=== PATIENT | female | born 1945 | race Caucasian/White ===

== ENCOUNTER 2017-01-31 15:09 | Inpatient (IN) | payer MEDICARE, OTHER ==
[~2017-01-31] VITALS: Ht 149.9 cm; Wt 99.8 kg
[~2017-01-31 15:09] MED LIST: ACETAMINOPHEN-1 EAC1 PO; ASPIR-LOW81 MG PO; CITALOPRAM HBR20 MG PO; CLARITIN10 MG PO; DILAUDID4 MG PO; HYDROCODON-ACE1 EA10 PO; KEFLEX250 MG PO; LIPITOR10 MG PO; LISINOPRIL10 MG PO; LORATADINE-D 21 EACH PO; MELOXICAM15 MG PO; METOPROLOL SUCC25 MG PO; OXYCODONE HCL10 MG PO; POTASSIUM GLUCO99 MG PO; ROPINIROLE HC0.25 MG PO; VESICARE10 MG PO; XARELTO10 MG PO
[2017-02-04] MEDS ORDERED: NORCO 7.5-3251 EACH PO (12:38)
--- NOTE | 2017-02-05 12:41 | NUR ---
[facility] PT CARE NOTE THIS IS A 71 YEAR OLD FEMALE THAT IS SCHEDULED FOR A RIGHT TOTAL KNEE REPLACEMENT BY DR DANN ROSE ON 02/17/17. PT STATES SHE LIVES WITH HER IN 1 STORY HOUSE WITH A HANDICAP RAMP. STATES THEY HAVE A TUB/SHOWER COMBINATION AND THEY HAVE A SHOWR SEAT. PT STATES SHE HAD HER LEFT ONE DONE 01/2016 AND HAS A FWW ALREADY. ALSO STATES SHE HAS BEEN TO [facility] OP PT AND IS PLANNING ON DOING OP PT AFTER SURGERY. PT DENIES ANY FURTHER QUESTIONS AT THIS TIME. WILL FOLLOW HER DURING HER STAY IN THE HOSPITAL. [employer] EXAMINERTRANSPORTATION PROJECT MANAGER CASE MANAGEMENT
--- NOTE | 2017-02-17 08:53 | NUR ---
02/17/17 0853 Liz Lance 0844: NASAL AIRWAY REMOVED BY STEREO COMPILER. O2 SAT 99% PT AWAKE, REACTIVE AND MAINTAINING OWN AIRWAY. 0837: PT ARRIVED TO PACU WITH NASAL AIRWAY AND ON 4L NC. REACTIVE TO STIMULI. 0852: KRIO CUFF PLACED ON RIGHT KNEE OVER URIEL WRAP PER ORDER.
--- NOTE | 2017-02-17 09:45 | NUR ---
PT ARRIVED FROM PACU VIA HOSPITAL BED. PT DROWSY BUT ORIENTED. DENIES PAIN, NAUSEA, OR OTHER CONCERNS. RIGHT KNEE DRESSING CDI. TEDS, SCD'S, AND CRYO CUFF IN PLACE. PT SATTING 93% ON 2L NC, PULSE OX ON. IV INFUSING INTO LEFT HAND WNL. EDUCATED PT ON USING BED AND CALL LIGHT, CALLING FOR ASSISTANCE NEEDED. CALL LIGHT WITHIN REACH.
--- NOTE | 2017-02-17 10:50 | NUR ---
PT SITTING UP IN BED DRINKING CLEAR LIQUIDS FROM CLEAR LIQUID TRAY, LAVELLE WELL SO FAR. PT DENIES PAIN OR NAUSEA. RIGHT KNEE DRESSING REMAINS CDI. PT REPORTS INCREASED SENSATION OF LOWER EXTREMITIES ALL THE WAY DOWN TO FEET, MOVEMENT OF KNEES AND TOES NOTED.
--- NOTE | 2017-02-17 11:50 | NUR ---
PT LAVELLE CLEARS WELL AND REQUESTED MORE TO EAT. ORDERED GRILLED CHEESE SANDWICH, LAVELLE WELL. DENIES PAIN OR NAUSEA. TEDS, SCD'S, AND CRYOCUFF IN PLACE, RIGHT KNEE DRESSING REMAINS CDI. IV INFUSING WNL.
--- NOTE | 2017-02-17 12:21 | NUR ---
PT IN MED/SURG RM FROM PACU FOLLOWING SURGERY. PT WAS MOSTLY AWAKE, KNEW I WAS PRESENT, BUT STILL NOT COMPLETELY AWARE. I TOLD HER I WAS CHECKING ON HER, SHE THANKED ME. I MENTIONED I WOULD RETURN TO VISIT HER LATER. PT THANKED ME, GAVE HER A BLESSING. WILL FOLLOW NEEDED
--- NOTE | 2017-02-17 13:08 | NUR ---
ATTEMPTED TO WEAN TO RA, PT SATTING 88% ON RA. PLACED BACK ON 2L NC SATTING 95%. PT USING I.S. INDEPENDENTLY AND APPROPTIATELY. CALL LIGHT WITHIN REACH. AT BEDSIDE.
--- NOTE | 2017-02-17 14:30 | NUR ---
PT WORKED WITH P.T., AMB TO RESTROOM WITH 1 PA AND FWW. PT WAS ABLE TO VOID WITHOUT DIFFICULTY. DEPENDS ON PER PT REQUEST SHE HAS SOME OCC INCONTINENCE. PT AMB BACK TO BED WITHOUT DIFFICULTY. CALL LIGHT WITHIN REACH.
--- NOTE | 2017-02-17 16:10 | NUR ---
PT DROSWY IN BED, WATCHING TV OCC. DENIES NEEDS OR CONCERNS AT THIS TIME. CALL LIGHT WITHIN REACH.
--- NOTE | 2017-02-17 17:30 | NUR ---
PT ATE ALL OF DINNER, LAVELLE WELL. DENIES PAIN OR NAUSEA AT THIS TIME. DRESSING CDI. SCD'D, TEDS, CRYO CUFF IN PLACE. CRYOCUFF REFILLED WITH ICE. IV WNL. PT REMAINS ON 2L NC SATTING 96%. CALL LIGHT WITHIN REACH. AT BEDSIDE.
--- NOTE | 2017-02-17 20:04 | NUR ---
PT ASSESSMENT COMPLETE. AT BEDSIDE. PT ALERT AND ORIENTED. PT ON 2 LPM, SATS 98% PER CONTINUOUS PULSE OXIMETER. PT DENIES ANY SOB, N/V. PT RATES PAIN 2/10, SCHEDULED TORADOL AND OXYCODONE GIVEN. IV FLUIDS INFUSING WITHOUT DIFFICULTY. DRESSING TO RIGHT KNEE HAS NOTED FIFTY CENT PIECE SHADOWING TO UPPER PORTION OF MEPILEX DRESSING, NOT SATURATED THROUGH ABD PAD OR URIEL WRAP, OTHERWISE DRESSING C/D/I. PT DENIES ANY NUMBNESS/TINGLING TO LOWER EXTREMITIES. GOOD CMS. CRYO CUFF/TEDS/SCD IN PLACE. PT ASSISTED UP TO BATHROOM WITH x1 ASSIST USING FWW, SLOW TO MOVE, TOLERATED AMBULATION FAIRLY WELL. PT VOIDING WITHOUT DIFFICULTY. ASSISTED BACK TO BED. CALL LIGHT WITHIN REACH. PT DENIES ANY FURTHER NEEDS AT THIS TIME.
--- NOTE | 2017-02-17 20:12 | NUR ---
RT IN WITH PT DOING NIGHT ASSESSMENT. CALL LIGHT WITHIN REACH.
--- NOTE | 2017-02-17 23:04 | NUR ---
PT RESTING QUIETLY WITH EYES CLOSED. SATS 97% ON 2 LPM O2 VIA NASAL CANNULA. IV FLUIDS INFUSING WITHOUT DIFFICULTY. PT APPEARS COMFORTABLE AT THIS TIME. CRYO CUFF/TEDS/SCD IN PLACE. CALL LIGHT WITHIN REACH.
--- NOTE | 2017-02-18 02:05 | NUR ---
PT WAKES EASILY WHEN STAFF WALK IN ROOM. PT DENIES ANY PAIN AT REST, SCHEDULED TORADOL AND OXYCODONE GIVEN. PT SATS 97% ON 2 LPM O2 VIA NASAL CANNULA. IV FLUIDS INFUSING WITHOUT DIFFICULTY. DRESSING TO RIGHT KNEE IS UNCHANGED FROM PREVIOUS ASSESSMENT, SMALL AMOUNT OF SHADOWING NOTED TO MEPILEX OTHERWISE C/D/I. PT ASSISTED UP TO BATHROOM WITH x1 ASSIST USING FWW. PT VOIDING WELL. PT AMBULATES SLOWLY, TOLERATES AMBULATION FAIRLY WELL. PT BACK IN BED. CRYO CUFF REFILLED AND IN PLACE. TEDS/SCD IN PLACE. CONTINUOUS PULSE OXIMETER IN PLACE. CALL LIGHT WITHIN REACH. PT DENIES ANY FURTHER NEEDS AT THIS TIME.
--- NOTE | 2017-02-18 04:14 | NUR ---
PT SLEEPING, RR EVEN AND UNLABORED. PT APPEARS COMFORTABLE AT THIS TIME. PT SATS 98% ON 2 LPM O2 VIA NASAL CANNULA. CALL LIGHT WITHIN REACH.
--- NOTE | 2017-02-18 06:37 | NUR ---
PT HAD AN UNEVENTFUL NIGHT. PT ON 2 LPM O2 VIA NASAL CANNULA, CONTINUOUS PULSE OXIMETER IN PLACE. SCHEDULED TORADOL/OXYCODONE GIVEN, NO PRN PAIN MEDICATION NEEDED THIS SHIFT. PT DENIES ANY N/V, SOB. DRESSING HAS SMALL SHADOWING NOTED TO DANIELX, OTHERWISE DRESSING C/D/I. CRYO CUFF/TEDS/SCD IN PLACE. PT VOIDING WELL. IV NOW SALINE LOCKED. PT AMBULATES WITH x1 ASSIST USING FWW, SLOW TO MOVE, TOLERATES AMBULATION FAIRLY WELL.
--- NOTE | 2017-02-18 07:47 | NUR ---
MORNING ASSESSMENT DONE. PATIENT SITTING UP IN BED FOR BREAKFAST. BLOOD GLUCOSE IS 126 WITH NO COVERAGE NEEDED. O2 AT 2L AND 99% AT REST. RIGHT KNEE DRESSING HAS OLD DRAINAGE ON MEPILEX, BUT IS OTHERWISE INTACT. PATIENT RATES RIGHT KNEE PAIN 5/10 AND WILL TAKE SCHEDULED PAIN MEDICATIONS AFTER BREAKFAST.
--- NOTE | 2017-02-18 08:35 | NUR ---
DR. ROSE IN TO SEE PATIENT. PATIENT LIKELY TO GO HOME TOMORROW. PATIENT TO HAVE OUT PATIENT PHYSICAL THERAPY UPON DISCHARGE.
--- NOTE | 2017-02-18 09:21 | NUR ---
PATIENT UP TO CHAIR WITH 2 PERSON ASSIST AND WALKER. PATIENT ON ROOM AIR AND 95%, RT NOTIFIED. PATIENT WITH KRYO CUFF ON. PATIENT INCOURAGED TO USE INCENTIVE SPIROMETER. LINENS ARE CHANGED.
--- NOTE | 2017-02-18 09:33 | NUR ---
PATIENT GIVEN ONE NORCO FOR 4/10 RIGHT KNEE PAIN, AND IN ANTICIPATION OF PHYSICAL THERAPY THIS MORNING.
--- NOTE | 2017-02-18 10:23 | NUR ---
PATIENT UP TO AMBULATE WITH PHYSICAL THERAPY, DID STAIRS.
--- NOTE | 2017-02-18 12:12 | NUR ---
PT SITTING IN CHAIR-MUCH MORE ALERT AND ORIENTED THAN YESTERDAY. HER BY HER SIDE. P.T. HAS BEEN IN ONCE, AND SHE KNOWS THAT ANOTHER SESSION WILL BE THIS AFTERNOON. HER RIGHT HAND IS ALSO HEALING FROM A SMALL PROCEDURE DONE LAST WEEK, JUST THEY BEGAN TO MOVE FROM [place] TO [place]. EXPRESSED GREAT SATIFACTION WITH DR ROSE. REQUESTED PRAYER, WILL FOLLOW NEEDED
--- NOTE | 2017-02-18 12:21 | NUR ---
PATIENT UP TO CHAIR FOR LUNCH. APPETITE IS GOOD. PATIENT GIVEN ONE NORCO FOR 3/10 RIGHT KNEE PAIN.
--- NOTE | 2017-02-18 13:46 | NUR ---
ADMINISTERED PRN PAIN MEDS PER PT REQUEST, RATES PAIN 6\10. DENIES FURTHER CONCERNS.
--- NOTE | 2017-02-18 13:59 | NUR ---
FILLED PTS KRYO CUFF WITH ICE
--- NOTE | 2017-02-18 15:29 | NUR ---
PT OUT OF ROOM WORKING WITH PHYS. THER.
--- NOTE | 2017-02-18 18:59 | NUR ---
REFILLED CRYO 1843 AND FRESH WATER.
--- NOTE | 2017-02-18 20:10 | NUR ---
PT ASSESSMENT COMPLETE. PT RATES PAIN 5-6/10, SCHEDULED TORADOL AND OXYCODONE GIVEN. PT DENIES ANY SOB, N/V. SATS 94% ON ROOM AIR PER CONTINUOUS PULSE OXIMETER. DRESSING TO KNEE IS C/D/I, SMALL AMOUNT OF SHADOWING NOTED TO MEPILEX WHICH IS UNCHANGED FROM MY PREVIOUS ASSESSMENTS. IV SALINE LOCKED, PATENT AND INTACT, FLUSHES WELL. GOOD CMS. CRYO CUFF/TEDS/SCD IN PLACE. PT ASSISTED UP TO BATHROOM WITH x1 ASSIST USING FWW, SLOW TO MOVE, TOLERATES AMBULATION FAIRLY WELL. PT VOIDING WELL. PT BACK IN BED. CALL LIGHT WITHIN REACH. PT DENIES ANY FURTHER NEEDS AT THIS TIME.
--- NOTE | 2017-02-18 21:15 | NUR ---
PT RESTING IN BED DOING WORD PUZZLES. PT STATES HER PAIN IS GETTING BETTER, NOW RATES PAIN 4-5/10. CRYO CUFF/TEDS/SCD IN PLACE. PT DENIES ANY FURTHER NEEDS AT THIS TIME. CALL LIGHT WITHIN REACH.
--- NOTE | 2017-02-18 23:19 | NUR ---
PT C/O PAIN 08/09, NORCO GIVEN PER PT REQUEST. WARM BLANKETS GIVEN. PT READY FOR BED. LIGHTS AND TV OFF. CALL LIGHT WITHIN REACH. PT DENIES ANY FURTHER NEEDS AT THIS TIME.
--- NOTE | 2017-02-19 00:48 | NUR ---
PT SLEEPING, RR EVEN AND UNLABORED. PT APPEARS COMFORTABLE AT THIS TIME. SATS 95% ON ROOM AIR. CALL LIGHT WITHIN REACH
--- NOTE | 2017-02-19 01:45 | NUR ---
ASSISTED PT UP TO BATHROOM WITH x1 ASSIST USING FWW, PT VERY SLOW TO MOVE THIS AM, BUT TOLERATED AMBULATION OKAY. PT PAINFUL WITH MOVEMENT. DRESSING UNCHANGED FROM PREVIOUS ASSESSMENT. CRYO CUFF REFILLED. CALL LIGHT WITHIN REACH.
--- NOTE | 2017-02-19 02:00 | NUR ---
ASSISTED BACK TO BED FROM BATHROOM. MOVES SLOW, PAINFUL. STATES THIS KNEE IS WAY MORE PAINFUL THAN THE LEFT KNEE SHE HAD REPLACED. PT RN TO MED HER FOR PAIN.
--- NOTE | 2017-02-19 02:10 | NUR ---
PT BACK IN BED. PT RATES PAIN 4/10, SCHEDULED TORADOL AND OXYCODONE GIVEN. IV PATENT AND INTACT, FLUSHES WELL. PT SATS 95% ON ROOM AIR PER CONTINUOUS PULSE OXIMETER. CRYO CUFF/TEDS/SCD IN PLACE. WARM BLANKET GIVEN FOR COMFORT. CALL LIGHT WITHIN REACH. PT DENIES ANY FURTHER NEEDS AT THIS TIME.
--- NOTE | 2017-02-19 03:58 | NUR ---
PT SLEEPING, RR EVEN AND UNLABORED. PT APPEARS COMFORTABLE AT THIS TIME. SATS 91% ON ROOM AIR WHILE SLEEPING. CALL LIGHT WITHIN REACH.
--- NOTE | 2017-02-19 05:26 | NUR ---
PT HAD AN UNEVENTFUL NIGHT. SLEPT MOST OF NIGHT. AMBULATES WITH x1 ASSIST USING FWW, SLOW TO MOVE. SALINE LOCKED. RECEIVING SCHEDULED TORADOL AND OXYCODONE, ONLY NEEDED PRN NORCO ONCE. DRESSING C/D/I. PT ON ROOM AIR, CONTINUOUS PULSE OXIMETER IN PLACE. CRYO CUFF/TEDS/SCD IN PLACE. PT PLAN IS TO POSSIBLY D/C HOME TODAY.
--- NOTE | 2017-02-19 07:20 | NUR ---
BEDSIDE HANDOFF REPORT RECEIVED FROM SKYDIVING INSTRUCTOR RN. PT SLEEPING, LEFT UNDISTURBED.
--- NOTE | 2017-02-19 08:00 | NUR ---
PT SITTING IN CHAIR, EATING BREAKFAST. PT REQUESTING PAIN MEDICATION, RATING PAIN 5/10 TO RIGHT KNEE, GIVEN SCHEDULED OXYCODONE AND TORADOL. PT DENIES SOB, LUNG SOUNDS CLEAR, ON ROOM AIR, CONTINUOUS PULSE OX IN PLACE, O2 SATS 93%. PT DENIES NAUSEA, TOLERATING REGULAR DIET, BOWEL TONES ACTIVE. PT WITH DRESSING TO RIGHT KNEE, SMALL AMOUNT OF OLF SHADOWING PRESENT TO PROXIMAL DRESSING, CARMEN HOSE AND CRYOCUFF IN PLACE. CMS INTACT, PULSES PALPABLE. PT VOICING CONCERN TAHT SHE DOES NOT FEEL SHE IS READY FOR DISCHARGE, DISCUSSED PLAN OF CARE WITH PT. PT DENIES OTHER NEEDS AT THIS TIME.
--- NOTE | 2017-02-19 08:12 | OR ---
[facility] [address], [place] [address] Signed DATE OF PROCEDURE: 02/17/17 PREOPERATIVE DIAGNOSIS: Degenerative joint disease, right knee. POSTOPERATIVE DIAGNOSIS: Degenerative joint disease, right knee. PROCEDURE PERFORMED Right total knee arthroplasty with computer navigation. SURGEON: Xin Tafoya M.D. SHEETMETAL TRADES WORKER Arelis Velasquez PA-C. Arelis was present and critical for positioning, retraction, wound closure. ANESTHESIA: Spinal. BLOOD LOSS: Minimal. TOURNIQUET TIME: 59 minutes. IMPLANTS Carloz triathlon size 5 femur, 4 tibia, 11-mm polyethylene, and 32-mm patella. BRIEF HISTORY Alayna is a 71-year-old female with progressive worsening of arthritis and slight varus. Risks and benefits of operative treatment were discussed with her and she elected to proceed. DESCRIPTION OF PROCEDURE Once consent was obtained, she was taken to the operating room. After adequate anesthesia, she was placed on operating room table. All downside pressure points well-padded and a well-padded proximal thigh tourniquet was placed. The leg was prepped and draped in a standard sterile fashion and exsanguinated using Esmarch bandage. Tourniquet was inflated to 300 mmHg. Standard anterior-posterior curved incision was taken through skin and subcutaneous tissue. Median parapatellar arthrotomy was performed. The infrapatellar fat pad was excised. The MCL was elevated of a sleeve around the posterior medial corner. Osteophytes were removed as we went. The knee was then flexed. Navigation guide was pinned to the distal femur. The femur was registered with the computer. The cutting block was then pinned in neutral alignment and distal femoral cut was made. Distal femur sized to a 5; the 5 cutting block was pinned in alignment with epicondylar axis. The anterior-posterior chamfer cuts were made and any Electronically Signed By: XIN TAFOYA MD 02/19/1712 PATIENT NAME: ALAYNA KELLEY OPERATIVE REPORT DATE OF : 41 PHYSICIAN: XIN TAFOYA MD REPORT #: [id number] REPORT IS CONFIDENTIAL AND NOT TO BE RELEASED WITHOUT AUTHORIZATION [facility] [address], [place] [address] Signed remaining osteophytes removed. Attention was t hen turned to proximal tibia. The navigation guide was pinned to proximal tibia and the cutting block was pinned to neutral alignment. The cut was made with care taken to protect the patellar tendon and MCL. The menisci removed. Posterior osteophytes were removed off the femur. Posterior release was performed. Flexion-extension gaps were sized and found to be symmetric at 11 mm. The trials were positioned. She was taken through range of motion and found to be stable and in good alignment. She had 0-110 degrees which represented basically thigh-heel impingement. The patella was cut sized and drilled for a 32 patella. The trial was removed and the proximal tibia was finished using the keel punch. Prior to removing the trials, we did drill the femoral lug holes. The bone was pulse lavaged and packed with dry Ray-Lorena. The cement was mixed and reached proper consistency, displaced all implants on bone surfaces. Tibia was impacted in position first followed by the femur and all excess cement was removed. The knee was extended and nicely loaded. The patella was clamped and again all excess cement was removed. The cement was allowed to harden. Once hardened sufficiently, the knee was flexed and the remaining cement was removed using osteotomes. The knee was pulse lavaged at intervals throughout the procedure. A total of 3 L of antibiotic irrigation was used. The periarticular soft tissues were injected with 100 mL Ropivacaine -Toradol mixture. The final stability and range of motion was checked and found to be satisfactory. The arthrotomy was closed using #1 Stratafix and 0 Stratafix for the subcutaneous tissue and susy for the skin. She was dressed with Mepilex Ag dressing, ABD, and John wrap. Awakened and taken to recovery room in satisfactory condition. All sponge, needle, and instrument counts were correct. Xin Tafoya MD BA/Modl /[id number] cc: Marleny Mccord PA-C Electronically Signed By: XIN TAFOYA MD 02/19/17811 PATIENT NAME: ALAYNA KELLEY OPERATIVE REPORT DATE OF : 41 PHYSICIAN: XIN TAFOYA MD REPORT #: [id number] REPORT IS CONFIDENTIAL AND NOT TO BE RELEASED WITHOUT AUTHORIZATION
--- NOTE | 2017-02-19 08:20 | NUR ---
SPOKE DIRECTLY WITH DR. ROSE, DISCUSSSED PAIN MANAGEMENT. DR ROSE TO INCREASE OXYCODONE DOSE, REQUESTING THAT PT RECEIVE PRN NORCO MORE FREQUENTLY. PT WILL NOT DISCHARGE TODAY DUE TO PAIN MANAGEMENT.
--- NOTE | 2017-02-19 09:10 | NUR ---
Brought pt. her breakfast about 0730, and got her from the bed to the chair, used the walker, she said she was very painful. Told Renata her nurse. Got her set up for breakfast, call light in reach
--- NOTE | 2017-02-19 10:00 | NUR ---
DRESSING TO RIGHT KNEE REMOVED BY DR. ROSE THIS AM. DRESSING REPLACED WITH CLEAN MEPILEX AND URIEL BANDAGE PER MD REQUEST. PT RESTING IN BED. CRYOCUFF, SCDS AND CARMEN HOSE IN PLACE. PT DENIES OTHER NEEDS AT THIS TIME.
--- NOTE | 2017-02-19 10:10 | NUR ---
ASSISTED PATIENT FROM BATHROOM TO CHAIR. CALL BUTTON IN REACH. NURSE IN TO REDRESS KNEE.
--- NOTE | 2017-02-19 10:20 | NUR ---
PT RESTING IN PAIN, PT STATES PAIN TOLERABLE AT THIS TIME, RATING PAIN 3/10. PT DENIES NEEDS AT THIS TIME. TO CONTINUE WITH FREQUENT PAIN REASSESSMENT.
[2017-02-19] MEDS ORDERED: IRON325 M1 PO (11:00)
[2017-02-19] MEDS ORDERED: VITAMIN C500 M1 PO (11:01)
[2017-02-19] MEDS ORDERED: SF 5000 PLUS51 GM MM (11:03)
[2017-02-19] MEDS ORDERED: GABAPENTIN300 MG PO (11:03)
[2017-02-19] MEDS ORDERED: OMEPRAZOLE20 MG PO (11:03)
--- NOTE | 2017-02-19 11:04 | NUR ---
MED REC COMPLETE
--- NOTE | 2017-02-19 11:54 | NUR ---
PT SITTING IN BED, ALERT AND ORIENTED. SHE APPEARS TO BE DEALING WITH SOME PAIN THAT SEEMS TO BE CONSTANT. SHE ASKED TO STAY ANOTHER DAY BECAUSE OF THE WAY SHE FELT. SHARED WITH ME SOME ANXIETY ABOUT MOVING TO HER NEW HOME IN [place]. YARD MUCH SMALLER FOR HER ANIMALS. 5 DOGS AND 4 CATS. GOOD VISIT, PT REQUESTED PRAYER. SHE MENTIONED THAT SHE HAD TOLD HER TO STAY HOME AND GET SOME REST. WILL FOLLOW NEEDED
--- NOTE | 2017-02-19 11:54 | NUR ---
PATIENT UP TO BATHROOM ONE PERSON ASSIST WITH WALKER. BED BATH DONE. AC AND ORAL CARE DONE.PATIENT SITTING UP IN CHAIR. LUNCH ORDERED. ICE IN CRYO FRESH ICE WATER GIVEN. NO OTHER NEEDS AT THIS TIME.
--- NOTE | 2017-02-19 12:53 | NUR ---
PT ASSISTED TO RESTROOM AND BACK TO CHAIR. PT STATING PAIN MUCH BETTER THAN THIS AM. PT DENIES NEEDS AT THIS TIME.
--- NOTE | 2017-02-19 13:15 | NUR ---
DR. RIBEIRO AT BEDSIDE TO EVALUATE PT. NO NEW ORDERS AT THIS TIME. PT RESTING IN CHAIR. PT DENIES NEEDS.
--- NOTE | 2017-02-19 13:43 | NUR ---
PATIENT SITTING UP IN CHAIR WITH CALL BUTTON IN REACH. PT IN ROOM NO OTHER NEEDS AT THIS TIME.
--- NOTE | 2017-02-19 14:34 | NUR ---
PT COMPLETED OCCUPATIONAL THERAPY. PT SITTING IN CHAIR. PT RATING PAIN 3/10, PT STATES PAIN WAS TOLERABLE DURING THERAPY. GIVEN SCHEDULED OXYCODONE AND TORADOL. PT DENIES OTHER NEEDS AT THIS TIME.
--- NOTE | 2017-02-19 15:22 | NUR ---
PT O2 SATS 88% ON ROOM AIR, PT SLEEPING IN CHAIR. PLACED ON 1L NC, SATS NOW 94% WILL CONTINUE TO MONITOR. I/S ENCOURAGED, PT USING APPROPRIATELY.
--- NOTE | 2017-02-19 16:27 | NUR ---
PATIENTS SAT AT 89% WHILE FALLING ASLEEP. INCOURAGED PATIENT TO USE I.S. NO OTHER NEEDS AT THIS TIME. CALL BUTTON IN REACH.
--- NOTE | 2017-02-19 17:07 | NUR ---
PT COMPLETED WITH PHYSCIAL THERAPY. PT RATING PAIN 4/10 DURING THERAPY, STATED PAIN WAS TOLERABLE. PT GIVEN SCHEDULED OXYCODONE. PT SITTING IN CHAIR, EATING DINNER. PT DENIES OTHER NEEDS AT THIS TIME.
--- NOTE | 2017-02-19 17:20 | NUR ---
PATIENT SITTING UP IN CHAIR EATING DINNER WHILE TALKING ON THE PHONE. CALL BUTTON IN REACH.
--- NOTE | 2017-02-19 17:59 | NUR ---
PT ALERT/ORIENTED. PT PAIN MEDICATIONS INCREASED, PAIN BETTER CONTROLLED THIS EVENING. PT WORKED WITH PHYSICAL THERAPY AND OCCUPATION THERAPY, WALKED IN HERNANDEZ. PT ON ROOM AIR, 1 EPISODE OF DESATURATION PLACED ON 1L BRIEFLY, CONTINUOUS PULSE OX IN PLACE, USING I/S APPROPRIATELY. PT TOLERATING ADA DIET, DENIES NAUSEA. DRESSING CHANGED THIS AM, CDI. CARMEN URBINA, SCDS, CRYOCUFF IN PLACE. PT VOIDING QS, INCONTINENT AT TIMES. PT HAD MULTIPLE BM TODAY.
--- NOTE | 2017-02-19 18:02 | NUR ---
PATIENT SITTING UP IN CHAIR WATCHING TV. FRESH ICE WATER GIVEN ICE IN CRYO. NO OTHER NEEDS AT THIS TIME. CALL BUTTON IN REACH. INCOURAGED PATIENT TO US I.S.
--- NOTE | 2017-02-19 18:50 | NUR ---
PT RATING PAIN 4/10, REQUESTING PAIN MEDICATION, 2 TAB NORCO GIVEN. PT ASSISTED TO BATHROOM, VOIDED AND HAD BM. PT ASSISTED BACK TO BED. SCDS, CRYOCUFF, CARMEN HOSE AND HEEL PROTECTORS IN PLACE. PT DENIES OTHER NEEDS AT THIS TIME.
--- NOTE | 2017-02-19 21:30 | NUR ---
PT CALLED, IN TO SEE PT. PT UP TO BATHROOM WITH 1 PERSON ASSIST AND FWW. PT TOLERATED WELL. PT ASSISTED BACK TO BED. PT RATES PAIN A 3/10, SCHEDULED OXY GIVEN. CRYO CUFF, TEDS, SCD'S AND HEEL PROTECTORS IN PLACE. NO FURTHER NEEDS AT THIS TIME. CALL LIGHT WITH IN REACH.
--- NOTE | 2017-02-19 23:05 | NUR ---
IN TO CHECK ON PT. PT C/O PAIN 09/09. PRN NORCO GIVEN. PT REPOSITIONED FOR COMFORT. CRYO CUFF, SCD'S AND TEDS IN PLACE. NO FURTHER NEEDS AT THIS TIME. CALL LIGHT IN REACH.
--- NOTE | 2017-02-19 23:41 | NUR ---
PULSE OX ALARM ON, IN TO CHECK ON PT. PT O2 SATUARATION 87 % ON RA. O2 AT 1 L PLACED ON PT WHILE SLEEPING. NO FURTHER NEEDS AT THIS TIME. CALL LIGHT IN PLACE.
--- NOTE | 2017-02-20 02:00 | NUR ---
IN TO CHECK ON PT, PT AWAKE. ASSISTED TO ATHROOM. TOLERATED WELL. PT STATES SHE FEELS LIKE SHE IS "GETTING UP BETTER EVERY TIME." PT ASSISTED BACK TO BED. SCHEDULED PAIN MEDICATIONS GIVEN. CYRO CUFF REFILLED. DRESSING C/D/I. CRYO CUFF, SCD, TEDS AND HEEL PROTECTORS IN PLACE. NO FURTHER NEEDS AT THIS TIME. CALL LIGHT IN REACH.
--- NOTE | 2017-02-20 04:20 | NUR ---
IN TO CHECK ON PT, PT SLEEPING. AWAKENS EASILY TO VOICE. PT RATES PAIN 2/10, PRN NORCO GIVEN. CRYO CUFF, TEDS AND SCDS IN PLACE. NO FURTHER NEEDS AT THIS TIME. CALL LIGHT IN REACH.
--- NOTE | 2017-02-20 04:52 | NUR ---
PT HAS HAD UNEVENTFUL SHIFT, SLEPT WELL. PT HAS RATED PAIN 2-4/10, SCHEDULED AND PRN MEDICATIONS GIVEN. PRN NORCO GIVEN X2. DRESSING C/D/I. PULSE OX IN PLACE. PT ON 02 @ 1 L WHILE SLEEPING DUE TO DESATURATION. SL IN L HAND. ADA DIET, TOLERATING WELL. PT IS 1 PERSON STANDBY ASSIST WITH FWW, TOLERATES WELL. VOIDING QS. CRYO CUFF, TEDS, SCDS AND HEEL PROTECTORS IN PLACE.
[2017-02-20] MEDS ORDERED: MIRALAX17 GM PO (06:19)
[2017-02-20] MEDS ORDERED: HYDROCODON-ACE1 EA11 PO (06:19)
[2017-02-20] MEDS ORDERED: OXYCODONE HCL5 MG PO (06:19)
--- NOTE | 2017-02-20 07:15 | NUR ---
BEDSIDE HANDOFF REPORT RECEIVED FROM SLAB OFF MILL TENDER RN. PT SLEEPING LEFT UNDISTURBED.
--- NOTE | 2017-02-20 08:40 | NUR ---
PT BEING ASSISTED TO CHAIR WITH NURSE AIDE. PT RATING PAIN 4/10, REQUESTING PAIN MEDICATION, GIVEN 2 TAB NORCO. PT LUNG SOUNDS CLEAR, ON ROOM AIR, O2 SATS 96%. RIGHT KNEE INCISION COVERED WITH MEPILEX, CDI. CARMEN HOSE AND CRYOCUFF IN PLACE. PLAN TO DISCHARGE PT TODAY, PT EDUCATED ON ARIXTRA INJECTIONS, PT SELF ADMINISTERED INJECTION, GIVEN ARIXTRA HOME KIT. PT TOLERATING ADA DIET, DENIES NAUSEA, CONTINUES TO HAVE BOWEL MOVEMENTS, MIRALAX HELD. PT DENIES OTHER NEEDS AT THIS TIME.
--- NOTE | 2017-02-20 08:56 | NUR ---
PT USED WALKER TO AMBULATE TO BATHROOM, PT WENT USED THE TOILET, THEN AMBULATED TO CHAIR AND SAT UP FOR BREAKFAST. PT NEEDED A NEW PULL UP ATTEND.
--- NOTE | 2017-02-20 09:58 | NUR ---
PT WORKING WITH PHYSICAL THERAPY.
--- NOTE | 2017-02-20 10:10 | NUR ---
PT IS SHOWERING AND WILL RETURN TO CHAIR WHEN DONE TO WAIT FOR TO COME PICK HER UP ONCE SHE IS DISCHARGED.
--- NOTE | 2017-02-20 10:50 | NUR ---
PATIENT ASSISTED UP TO THE SHOWER, IV IN THE LEFT HAND DC'D TIP INTACT AND RIGHT LEG COVERED FOR THE SHOWER. AC CARE DONE AND ORAL CARE DONE BY THE RN. PATIENT DRIED OFF AND DRESSED. NEW CARMEN HOSE GIVEN TO HER AND PLACED ON HER LEGS. CRYO CUFF FILLED UP WITH ICE AND PATIENT SITTING UP IN THE CHAIR WAITING FOR HER TO COME PICK HER UP.
--- NOTE | 2017-02-20 12:20 | NUR ---
DISCHARGE TEACHING COMPLETED WITH PT. PRN NORCO 2 TAB GIVEN. PER PT REQUEST [facility] CALLED TO ENSURE [facility] INJECTION PRESCRIPTION RECEIVED, PHARMACY DOES NOT HAVE ORDER. DR. ROSE OFFICE CALLED, MESSAGE LEFT.
[2017-02-20] MEDS ORDERED: ARIXTRA2.5 MG/0.5 SUB-Q (12:54)
--- NOTE | 2017-02-20 13:05 | NUR ---
[facility] CALLED, [facility] NOT AVAILABLE TO FILL UNITL TOMORROW. PHARMACY ABLE TO FILL 1 DOSE FOR PT TO TAKE HOME, NEED ORDER FROM DR. ROSE. DR. ROSE OFFICE CALLED, MESSAGE LEFT TO CALL PHARMACY WITH ORDER.
--- NOTE | 2017-02-20 13:18 | NUR ---
PT IS DRESSED AND SITTING UP IN CHAIR SAFELY WITH CALL LIGHT IN REACH. PT IS WAITING TO BE DISCHARGED, DOES NOT NEED ANYTHING ELSE AT THE MOMENT
--- NOTE | 2017-02-20 13:26 | NUR ---
PT SEEMS TO BE RATHER GUARDED ABOUT HER FEELINGS. SHE IS TO BE DC'D TODAY, BUT NOT MUCH ENTHUSIASM. WILL BEGIN LIVING IN A NEW HOME TO HER AND HER 5 DOGS AND 4 CATS. SHE ACCEPTED THE [facility] I OFFERED HER, SEEMED MORE OUT OF A SENSE OF OBLIGATION RATHER THAN APPRECIATION. THERE ARE THINGS GOING ON THAT ARE HENDERING HER PROGRESS, BUT NOT WILLING TO ACKNOWLEDGE. HER WILL ARRIVE SOON TO TAKE HER HOME. EXTENDED A BLESSING
--- NOTE | 2017-02-21 07:27 | DS ---
[facility] [address], [place] [address] Signed DATE OF DISCHARGE: 02/20/17 ADMISSION DIAGNOSIS: Degenerative joint disease, right knee. DISCHARGE DIAGNOSIS: Degenerative joint disease, right knee. PROCEDURE PERFORMED During this hospitalization, right total knee arthroplasty. BRIEF HISTORY Alayna is a 71-year-old female with progressive worsening of her osteoarthritis. She wished to proceed with the arthroplasty. Risks, benefits, and alternatives were discussed with her and she elected to proceed. Once consent was obtained, she was taken to the op e rating room. After adequate anesthesia, she was placed on operating table. All downside pressure points well padded. She underwent the above-named procedure and tolerated well. She was taken to recovery room and subsequently to the orthopedic floor. She w a s placed on pain medication of Oxycodone 5 and [place] 7.5. Initially, she had good pain relief; however, she got behind and the Oxycodone was increased to 7.5 q.4 hours. She did well with physical therapy. She was able to ambulate down the blackmon, went up and down stairs by the day of discharge. She initially had a platelet count of 148,000, however at discharge was down to 100,000. This is a possible reaction to the Xarelto and I stopped her Xarelto and instituted Arixtra 2.5 mg subcu for the remaining time of anticoagulation. Otherwise, wound was clean and dry throughout. She had no other issues. She will be discharged to home with outpatient physical therapy on the above medications. She will follow up with me in 10-14 days or sooner should she have issues. Xin Tafoya MD BA/Valeriano /[id number] cc: Marleny Mccord PA-C Electronically Signed By: XIN TAFOYA MD 02/21/17 0727 PATIENT NAME: ALAYNA KELLEY DISCHARGE SUMMARY DATE OF : 41 PHYSICIAN: XIN TAFOYA MD REPORT #: [id number] REPORT IS CONFIDENTIAL AND NOT TO BE RELEASED WITHOUT AUTHORIZATION
[2017-03-14] MEDS ORDERED: ATORVASTATIN CA10 MG (15:19)
[2017-05-02] MEDS ORDERED: ZESTRIL10 MG PO (14:05)
== END 2017-02-20 14:25 | disposition home or self-care (01) | DRG 470 ==
LOC: DSVR 02-17 05:50 → MS 02-17 05:50
PROVIDERS: ADMIT Specialist
PROC: 3E0T3CZ (ICD-10-PCS; 2017-02-17)
PROC: 3E0T33Z Introduction of Anti-inflammatory into Peripheral Nerves and Plexi, Percutaneous Approach (ICD-10-PCS; 2017-02-17)
PROC: 0SRC0J9 Replacement of Right Knee Joint with Synthetic Substitute, Cemented, Open Approach (ICD-10-PCS; principal; 2017-02-17 06:45)
DX: M17.11 Unilateral primary osteoarthritis, right knee (principal); I35.0 Nonrheumatic aortic (valve) stenosis; G89.18 Other acute postprocedural pain; I10 Essential (primary) hypertension; E11.9 Type 2 diabetes mellitus without complications; E78.5 Hyperlipidemia, unspecified; G25.81 Restless legs syndrome
CPT/HCPCS: 01402; 36415; 64447; 64450; 76942; 80048; 85025; 94762; 97110; 97116; 97161; 97530; C1713; C1776; J0690; J1100; J1652; J1885; J2250; J2274; J2704; J2795; J3010; J7120

== ENCOUNTER 2017-06-18 06:45 | Inpatient (IN) | payer MEDICARE, OTHER ==
[~2017-06-18] VITALS: Ht 149.9 cm; Wt 97.1 kg
[~2017-06-18 06:45] MED LIST changes: +ARIXTRA2.5 MG/0.5 SUB-Q; +ATORVASTATIN CA10 MG; +GABAPENTIN300 MG PO; +HYDROCODON-ACE1 EA11 PO; +IRON325 M1 PO; +MIRALAX17 GM PO; +NORCO 7.5-3251 EACH PO; +OMEPRAZOLE20 MG PO; +OXYCODONE HCL5 MG PO; +SF 5000 PLUS51 GM MM; +VITAMIN C500 M1 PO; +ZESTRIL10 MG PO
[2017-07-10] MEDS ORDERED: CELEBREX50 MG PO (12:39)
--- NOTE | 2017-07-30 10:35 | NUR ---
07/30/17 Mila5 Bina Man 1017 PT ARRIVED TO PACU. PT ON 02 AT 6L VIA MASK. ORAL AIRWAY IN PLACE. PT ASLEEP, SLIGHTLY RESPONSIVE TO STIMULI. IV FLUSHED.
--- NOTE | 2017-07-30 15:37 | NUR ---
PT TO FLOOR AT 1530 VIA BED, MOVED TO MED/SURG BED WITH 4 PERSON ASSIST. RECIEVED BEDSIDE REPORT FROM SHOSHANA AREVALO RN. PT AWAKE, DROWSY, ORIENTED X 4. PT TO ROOM 108. DENIES PAIN. HAS VAGINAL PACKING IN PLACE, WITH AC PAD IN PLACE, AC PAD HAS MODERATE AMOUNT OF SANGUAINOUS DRAINAGE PRESENT. PT DENIES NAUSEA. REPORTED THAT SHE WANTS TO REST. CPAP APPLIED, OXYGEN SATURATION LEVEL 94% ON CPAP. HAS LR INFUSING AT 125 CC/HR. MARTINEZ IN PLACE, DRAINING BRIGHT NEON YELLOW URINE. PT REPORTS THAT SHE IS "STILL" HAVING TROUBLE MOVING HER LEGS, BUT WAS ABLE TO MOVE FEET, TOES, AND SLOWLY MOVE LEGS. PT REPORTS FULL SENSATION TO LEGS, FEET, AND TOES. PEDAL PULSES PALPABLE, CAPILARY REFILL 2 SECONDS TO BILATERAL FEET.
--- NOTE | 2017-07-30 16:29 | NUR ---
PATIENT RESTING IN BED, EYES CLOSED. CALL LIGHT IN REACH, FRESH WATER AT BEDSIDE.
--- NOTE | 2017-07-30 16:32 | NUR ---
1300 REPORT FROM PACU NURSE. 1330 PT SLEEPING, NO S/S OF DISTRESS. CPAP IN PLACE. 1355 PT SLEEPING, NO S/S OF DISTRESS. CPAP IN PLACE. 1410 PT RESTING, NO C/O PAIN. PT GIVEN SCHEDULED MOTRIN, TOLERATES WELL. 1450 PT UP IN BED, NO C/O PAIN. TALKING ON PHONE WITH FAMILY. 1530 PT TRANSFERRED TO MED/SURG ROOM 108.
--- NOTE | 2017-07-30 16:56 | NUR ---
PT TO FLOOR AT 1530. HAS NGT TO LEFT NARE IN PLACE. SPOUSE WITH PT. PT HAS NGT TO LIWS, OK'D BY DR. MORGAN. HAS LR INFUSING AT 125 CC/HR.
--- NOTE | 2017-07-30 17:01 | NUR ---
PT TO FLOOR FROM [facility] AT 1530, TO ROOM 108. PT HAS VAGINAL PACKING IN PLACE. ADAT, HAS ONLY HAD WATER AND JELLO THUS FAR. HAS DENIED PAIN, DENIED NAUSEA. AC PAD HAS MODERATE AMOUNT OF DARK RED DRAINAGE PRESENT. MARTINEZ CATHETER IN PLACE, DRAINING LARGE AMOUNT BRIGHT YELLOW URINE. DR. SANCHEZ IN TO SEE PT AT 1710.
--- NOTE | 2017-07-30 18:34 | NUR ---
HELPED GARRETT RN, DANGLE AND STAND PT AT THE BEDSIDE. MARTINEZ EMPTIED. I&O'S TAKEN AND DOCUMENTED. NEW AC PAD PLACED AND PT IS NOW BACK IN BED. CALL LIGHT IN REACH.
--- NOTE | 2017-07-30 18:40 | NUR ---
PT DANGLED LEGS AT EDGE OF BED. REPORTED FEELING DIZZY AT FIRST, BUT REPORTED THAT THIS RESOLVED AFTER SITTING UP AT EDGE OF BED FOR APROXIMATELY 30 SECONDS. PT THEN STOOD WITH 2 PERSON MINIMAL ASSIST. PT TOLERATED STANDING, AND TOOK 10 STEPS. PT THEN REPOSITIONED SELF IN BED, IS SITTING UP IN BED, AWAKE, ALERT. AC PAD WITH MODERATE AMOUNT DARK RED DRAINAGE PRESENT CHANGED FOR NEW AC PAD. DRAINAGE DID NOT APPEAR FRESH. PT TOLERATED CLEAR LIQUID DINNER. DENIED NAUSEA, PAIN.
--- NOTE | 2017-07-30 19:50 | NUR ---
PATIENT IS ASKING FOR HER HOME DOSE OF REQUIP. PLACED CALL TO DR SANCHEZ. RECEIVED VERBAL ORDER FOR PATIENTS HOME MEDICATION. VERIFIED ORDER USING THE REDBACK METHOD.
--- NOTE | 2017-07-30 20:00 | NUR ---
RECEIVED REPORT FO DAY SHIFT RN. PATIENT IS RESTING IN BED TALKING ON THE PHONE. NO NEEDS NOTED. CALL LIGHT IN REACH.
--- NOTE | 2017-07-30 20:52 | NUR ---
PATIENT ASSESMENT COMPLETED. PATIENTS EVENING MEDCIATIONS GIVEN PER ORDER. PATIENT DENIES ANY PAIN OR NAUSEA AT THIS TIME. PATIENT IS RESTING IN BED WATCHING TV. PATIENT HAS A MARTINEZ IN PLACE AND URINE OUTPUT IS QS. URINE IS NEON YELLOW IN COLOR. PATIENT HAS MINIMAL DRAINGE ON HER AC PAD. PATIENT HAS PULSE OX IN PLACE AND READINGS ARE WNL. PATIENT IS ON RA. PATIENT REQUESTED SOUP, PUDDING, AND JUICE. PATIENT DENIES ANY FURTHER NEEDS. CALL LIGHT IN REACH.
--- NOTE | 2017-07-30 22:45 | NUR ---
PATIENT ASSISTED IN STARIGHTENING COVERS. PATIENT WAS ABLE TO EAT HER SNACK WITH NO NAUSEA NOTED. PATIENT DENIES ANY NEEDS. PATIENT REPOSTIIONED IN BED. PATIENT DENIES ANY NEEDS CALL LIGHT IN REACH.
--- NOTE | 2017-07-31 00:28 | NUR ---
PATIENT IS RESTING IN BED WITH EYES CLOSED. PULSE OX READINGS ARE WNL. PATIENT IS WEARING HOME CPAP. CALL LIGHT IN REACH.
--- NOTE | 2017-07-31 01:57 | NUR ---
PATIENTS VITALS TAKEN AND RECORDED. PATIENTS MARTINEZ EMPTIED. PATIENTS URINE OUTPUT IS QS. PATIENT DENIES ANY PAIN AT THIS TIME. PATIENT CONTINUES TO WEAR HOME CPAP. PATIENT DENIES ANY FURTHER NEEDS CALL LIGHT IN REACH.
--- NOTE | 2017-07-31 03:48 | NUR ---
PATIENT CONTINUES TO REST IN BED W/HOME CPAP ON. PATIENTS PULSE OX READINGS ARE WNL. PATIENTS CALL LIGHT IN REACH.
--- NOTE | 2017-07-31 04:47 | NUR ---
PATIENT RESTED WELL THROUGHOUT THE SHIFT. PATIENT WORE HOME CPAP WHILE ASLEEP. PATIENT IS ON RA. PATIENT HAS PULSE OX IN PLACE. PATIENT WAS ABLE TO TOLERATE A REGULAR DIET, WITH NO NAUSEA NOTED. PATIENT HAS SCDS ON. PATIENT IS SL. PATIENT HAS MARTINEZ IN PLACE AND URINE OUPUT IS QS.PATIENT HAS DENIED ANY PAIN. PATIENT STOOD AT THE BEDSIDE. PATIENT HAD A SMALL AMOUNT OF DRAINAGE ON AC PAD. PATIENT IS AAOX3 AND USES CALL LIGHT APPROPRIATELY.
--- NOTE | 2017-07-31 06:26 | NUR ---
PATIENT ASSISTED TO AMBUALTE IN THE HALLWAY. PATIENT IS A SBA AND IS STEADY ON HER FEET. PATIENTS VITALS TAKEN AND RECORDED. PATIENT DENIES ANY PAIN AT THIS TIME. MARTINEZ REMOVED PER ORDER. BLADDER SCANNER PLACED IN ROOM. POST VOID RESIDUAL SHEET PLACED ON BATHROOM DOOR. PATIENT EDUCATED ON THE IMPORTANCE OF BLADDER SCANNNING AFTER VOIDING. PATIENT VERBALIZED UNDERSTANDING. PATIENTS AC PAD WAS ALSO SATURATED W/BROWN DRAINAGE. PATIENTS AC PAD ONLY NEEDED CHANGED X1 DURING THE NIGHT. PATIENT IS BACK IN BED RESTING. NO FURTHER NEEDS NOTED CALL LIGHT INREACH.
--- NOTE | 2017-07-31 07:22 | NUR ---
RECIEVED REPORT FROM CIVIL ENGINEERING PROJECT DESIGNER NURSE. PATIENT RESTING IN BED. DENIES NEEDS. CALL LIGHT IN REACH.
--- NOTE | 2017-07-31 09:29 | NUR ---
PATIENT UP TO BATHROOM WITH ASSIST. VOIDED 300CC, PVR 42CC. PATIENT C/O "GAS PAIN" 5/10 IN LOWER ABDOMEN. SHE ALSO C/O KNEE PAIN AND LOWER BACK PAIN. 1 TAB OXYCODONE ADMINISTERED. MODERATE BLOODY/BROWN FLUID ON AC-PAD. LUNGS ARE CLEAR, HR REGULAR, ACITVE BS. PATIENT IS PASSING FLATUS. SMALL HARD PELLET BM THIS MORNING. PATIENT AMBULATED M/S HALLWAY X 2. TOLERATED WELL WITH FWW, NO SOB. PATIENT NOW UP IN CHAIR. WATER PITCHER FILLED, WARM BLANKET APPLIED. DENIES FURTHER NEEDS. CALL LIGHT IN REACH.
[2017-07-31] MEDS ORDERED: LOW DOSE ASPIRI81 MG PO (10:45)
[2017-07-31] MEDS ORDERED: CELECOXIB200 MG PO (10:47)
--- NOTE | 2017-07-31 10:50 | NUR ---
PHARMACIST TALKING WITH PATIENT.
--- NOTE | 2017-07-31 10:55 | NUR ---
MED REC COMPLETE WITH YULIYA REFILL HISTORY AND PATIENT INTERVIEW.
--- NOTE | 2017-07-31 10:59 | NUR ---
PATIENT DENIES PAIN AT THIS TIME. SHE HAD A LARGE SOFT BM.
--- NOTE | 2017-07-31 11:30 | NUR ---
PATIENT RESTING IN BED. TOILETING OFFERED. CALL LIGHT IN REACH.
--- NOTE | 2017-07-31 12:18 | NUR ---
PATIENT UP TO BATHROOM. VOIDED 300CC. PVR 80CC. C/O GAS PAIN. PAIN MEDICINE ADMINISTERED PER JUL. PATIENT PASSING FLATUS. MEAL TRAY SERVED, REFILLED WATER PITCHER. DENIES NEEDS. CALL LIGHT IN REACH.
--- NOTE | 2017-07-31 14:00 | NUR ---
PATIENT UP TO BATHROOM. VOIDED AND HAD A LOOSE BM. SHE WAS UNABLE TO KEEP ALL THE URINE IN THE HAT. PVR 44CC. SCANT BLOODY DRAINAGE ON PERIPAD. PATIENT C/O PAIN IN HER BACK AND REQUESTED A PAIN PILL. PAIN MEDICATION ADMINISTERED PER MAR. PATIENT DENIES FURTHER NEEDS. CALL LIGHT IN REACH.
--- NOTE | 2017-07-31 14:27 | NUR ---
TRIED SEVERAL TIMES TO VISIT PT-BUSY DAY WITH STAFF. WILL TRY AGAIN TOMORROW
[2017-07-31] MEDS ORDERED: IBUPROFEN800 MG PO (15:21)
[2017-07-31] MEDS ORDERED: PERCOCET 5-3251 EACH PO (15:22)
[2017-07-31] MEDS ORDERED: SENNA8.6 MG PO (15:23)
--- NOTE | 2017-07-31 15:52 | NUR ---
PATIENT WORKING WITH PHYSICAL THERAPY.
--- NOTE | 2017-07-31 17:30 | NUR ---
REVIEWED D/C PAPERWORK WITH PATIENT AND . QUESTIONS AWNSERED. PATIENT AND DENY FURTHER QUESTIONS. VERBALIZED UNDERSTANDING OF DISCHARGE INSTRUCTIONS.
--- NOTE | 2017-08-19 08:30 | OR ---
[facility] [address] [facility] [place] [address] Signed DATE OF OPERATION: 07/30/2017 SURGEON: Blanche Mchugh MD INSTITUTION LIBRARIAN: Ilir Mcgrath MD PREOPERATIVE DIAGNOSIS: Complete uterovaginal prolapse. POSTOPERATIVE DIAGNOSIS: Complete uterovaginal prolapse. PROCEDURES PERFORMED: Total vaginal hysterectomy, partial left salpingectomy, culdoplasty, rectocele repair, and cystoscopy. ANESTHESIA: General ET. ESTIMATED BLOOD LOSS: 100 mL. DRAINS: Mcgovern catheter. PACKS: Vaginal. INDICATIONS AND FINDINGS: The patient is a 1, para 1, who has had complete uterovaginal prolapse, which was found on her exam earlier this year. At this point, she desired surgical repair. The patient has previously had bilateral knee replacements and has limited range of motion, particularly in her right knee. At the time of surgery, positioning was difficult because of her prior surgeries. She was positioned awake. Because of this, it was found that her right hip had limited abduction. She had essentially no rotation allowed at the hip. The knee had maybe 30 degrees of mobility on the right side. She did have complete uterovaginal prolapse at the time of surgery. After completion of the hysterectomy, the cystocele had essentially resolved. She continued to have a high rectocele. Electronically Signed By: BLANCHE MCHUGH MD 08/19/17 0830 PATIENT NAME: DAMIR KELLEY OPERATIVE REPORT DATE OF : 41 REPORT #: [id number] PHYSICIAN: BLANCHE MCHUGH MD PCP: TIHS GONZÁLES PA-C REPORT IS CONFIDENTIAL AND NOT TO BE RELEASED WITHOUT AUTHORIZATION [facility] [address] [place], [place] [address] Signed DESCRIPTION OF PROCEDURE: The patient was positioned awake initially and then taken out of the [facility] and a spinal anesthetic attempted. This was unsuccessful and the patient went to sleep with a general LMA anesthetic. She was then repositioned in the stirrups. She was then prepped and draped. Because of the limited mobility, the hysterectomy was very difficult. A weighted speculum was placed in the posterior cul-de-sac and the cervix was visualized and grasped on the anterior and posterior lips with single-tooth tenaculum. The cervix was injected with 1% lidocaine with 1:200,000 epi to a volume of 10 mL. The posterior cul-de-sac was then entered sharply. The swan neck speculum was then placed to the posterior cul-de-sac. The uterosacral ligaments were grasped bilaterally with curved Z clamps, divided with the Fuentes scissors and suture ligated with 0 Vicryl. Following this, the vaginal mucosa was circumscribed with a knife. Sharp dissection was used to push the vaginal mucosa off the cervix and the anterior cul-de-sac was opened at this time. Serial bites were taken on the cardinal ligament areas and the uterine vessel areas on each side taking care to incorporate both leaves of the peritoneum. Each of these were divided with the Fuentes scissors and suture ligated with 0 Vicryl. At this point, the remaining broad ligament pedicles could be clamped across, divided with the Fuentes scissors and free tied with 0 Vicryl followed by a suture ligature of 0 Vicryl. The specimen was thus removed. The uterus itself was quite small, though she did have a bulky cervix. The patient's left tube was then visualized and grasped on the fimbriated end, and this was clamped across with a curved Z clamp and excised. A free tie of 0 Vicryl was placed. The right tube was seen as was the right ovary, but it was quite high and no effort was made to remove that tube or ovary. There was a small hematoma near that broad ligament pedicle, but over observation, there was no evidence of ongoing bleeding. There was some bleeding near the uterine vessel area on the patient's right side, however, this was sutured with [id number] sutures of 0 Vicryl. The peritoneum was brought to the cuff with interrupted sutures of 0 Vicryl as well. Following this, the cuff was inspected and seen to be hemostatic. Because of the degree of prolapse, the uterosacral ligaments were plicated with interrupted sutures of 2-0 Ethibond. A 3rd suture was used to do a mini Moschcowitz-type closure of the cul-de-sac as well using the Ethibond suture. Following this, angle sutures were placed using 0 Vicryl coming through the vaginal mucosa, exteriorizing the broad ligament pedicles and coming through the uterosacral ligaments inferiorly, these were tied laterally and this was done bilaterally. The cuff itself was then closed with a running locking stitch of 0 Vicryl. A superficial suture of 0 Vicryl was placed near the left angle to cover a raw area of the cuff. Following this, the remaining anterior vaginal wall was very short with minimal descent. It was felt that a cystocele repair really could not be done. The rectocele repair was begun, however. A triangle of tissue was removed from the perineal body. The vaginal mucosa was undermined, incised in the Electronically Signed By: BLANCHE MCHUGH MD 08/19/17 0830 PATIENT NAME: DAMIR KELLEY YONI OPERATIVE REPORT DATE OF : 41 REPORT #: [id number] PHYSICIAN: BLANCHE MCHUGH MD PCP: TISH GONZÁLES PA-C REPORT IS CONFIDENTIAL AND NOT TO BE RELEASED WITHOUT AUTHORIZATION [facility] [address] [place], [place] [address] Signed midline to the apex of the vagina. An effort was made to separate the vaginal mucosa from the underlying tissue, but it was very scarred until the upper aspect of the vagina was reached. Following this, a rectal examination was done, which showed that there was no evidence of an enterocele, this was just a rectocele, which was quite high. The tissue surrounding the high rectocele was closed with a pursestring-type suture of 0 Vicryl. Interrupted sutures of 0 Vicryl were placed plicating the scar on the lower aspect of the vagina as well. A rectal examination was done, which confirmed that there were no sutures compromising the rectal lumen. An attempt previously had been made to reach the sacrospinous ligaments on each side, this could not be done because of the patient's characteristics. Following this, the vaginal mucosa was trimmed significantly, particularly on her right. The vaginal mucosa was then closed from the apex of the vagina to the hymenal ring with a running suture of 2-0 Vicryl. Additional [id number] were required in the upper aspect for control of bleeding. The posterior fourchette was recreated with a running suture of 2-0 Vicryl. Interrupted sutures were placed on the perineum to plicate the perineal muscles. The skin of the perineum was closed with a subcuticular suture of the 2-0 Vicryl. Inspection of the vault, showed good length and caliber. There was no evidence of ongoing bleeding. The vaginal canal was then packed with sulfa-coated gauze. All sponge and needle counts were correct at this point. Cystoscopy was done after removal of the Mcgovern. The patient had received IV fluorescein. The bladder was inspected. There was no evidence of any injury at all. Clear fluorescein-stained urine was seen to freely egress from the left ureter and clear urine was seen to egress from the right ureter, though this was unstained. The bladder was then drained and Mcgovern catheter replaced. The patient was then taken to the recovery room in good condition. MD HOLLY ReyesW/MODL /[id number] cc: MD Marleny Peter PA-C Electronically Signed By: BLANCHE MCHUGH MD 08/19/17 0830 PATIENT NAME: DAMIR KELLEY OPERATIVE REPORT DATE OF : 41 REPORT #: [id number] PHYSICIAN: BLANCHE MCHUGH MD PCP: TISH GONZÁLES PA-C REPORT IS CONFIDENTIAL AND NOT TO BE RELEASED WITHOUT AUTHORIZATION [address] [place] [address] Signed Copies: ILIR MCGRATH MD, [facility] ~ Electronically Signed By: BLANCHE MCHUGH MD 08/19/17 0830 PATIENT NAME: DAMIR KELLEY YONI OPERATIVE REPORT DATE OF : 41 REPORT #: [id number] PHYSICIAN: BLANCHE MCHUGH MD PCP: TISH GONZÁLES PA-C REPORT IS CONFIDENTIAL AND NOT TO BE RELEASED WITHOUT AUTHORIZATION
== END 2017-07-31 17:45 | disposition home or self-care (01) | DRG 742 ==
LOC: DSVR 07-30 06:02 → MS 07-30 06:45 → FBC 07-30 12:30 → MS 07-30 15:30
PROVIDERS: ADMIT Obstetrics & Gynecology
PROC: 0UT97ZZ Resection of Uterus, Via Natural or Artificial Opening (ICD-10-PCS; principal; 2017-07-30 06:45)
PROC: 0JQC3ZZ Repair Pelvic Region Subcutaneous Tissue and Fascia, Percutaneous Approach (ICD-10-PCS; principal; 2017-07-30 06:45)
PROC: 0UB67ZZ Excision of Left Fallopian Tube, Via Natural or Artificial Opening (ICD-10-PCS; principal; 2017-07-30 06:45)
DX: N81.3 Complete uterovaginal prolapse (principal); Z68.41 Body mass index [BMI] 40.0-44.9, adult; N87.9 Dysplasia of cervix uteri, unspecified; N39.41 Urge incontinence; Z96.653 Presence of artificial knee joint, bilateral; Z95.2 Presence of prosthetic heart valve; K21.9 Gastro-esophageal reflux disease without esophagitis; E78.00 Pure hypercholesterolemia, unspecified; F32.9 Major depressive disorder, single episode, unspecified; E66.01 Morbid (severe) obesity due to excess calories; R73.03 Prediabetes
CPT/HCPCS: 00944; 36415; 80048; 85027; 88305; C1762; J0461; J0694; J1100; J1644; J1885; J2250; J2274; J2405; J2704; J2765; J3010; J7120

== ENCOUNTER 2017-07-10 12:08 | Day surgery (SDC) | payer MEDICARE, OTHER ==
[~2017-07-10] VITALS: Ht 149.9 cm; Wt 98.0 kg
[2017-07-10] MEDS ORDERED: CELEBREX50 MG PO (12:39)
--- NOTE | 2017-07-10 14:12 | NUR ---
07/10/17 1412 Melissa Angeles 1407-PATIENT ARRIVED TO PACU ON 3L NC O2 SAT 99% PATIENT AWAKE ABDOMEN SOFT. LEFT LATERAL.
--- NOTE | 2017-07-11 08:55 | OR ---
[facility] [address], [place] [address] Signed DATE OF OPERATION: 07/10/2017 SURGEON: Carlos Enrique Morgan MD PREOPERATIVE DIAGNOSIS: Colon screening. POSTOPERATIVE DIAGNOSIS: Sigmoid diverticulosis. PROCEDURE: Total colonoscopy to the cecum. ANESTHESIA: Intravenous sedation; fentanyl 100 mcg, Versed 5 mg. INDICATION: This 71-year-old white woman is a patient of YANCY Haddad and was seen by me in November anticipating screening colonoscopy. She had undergone colonoscopy greater than 10 years previously in [place], [place] at [facility]. Attempt at seeking those records has been unsuccessful. She is symptom-free and has no family history of colon cancer, but is recommended for colonoscopy at this time. She has a prior history of joint replacement therapy as well as aortic valve replacement (porcine valve). She was admitted to undergo colonoscopy, understood the risks of bleeding, infection, and perforation. FINDINGS: The prep was excellent. Complete colonoscopy was undertaken to the cecum. Numerous diverticula were seen in the sigmoid and left colon, but no sign of polyps, colitis, or cancer. DESCRIPTION OF PROCEDURE: The patient was brought to the endoscopy suite and placed in lateral decubitus position. She was given clindamycin intravenous antibiotic based for a prophylaxis. Intravenous sedation was induced with fentanyl and Versed to the point of slurred speech and nystagmus with full cardiopulmonary monitoring. Digital rectal examination was normal. An Olympus video colonoscope was passed in the rectum and manipulated throughout the Electronically Signed By: CARLOS ENRIQUE MORGAN MD 07/11/17 0855 PATIENT NAME: DAMIR KELLEY OPERATIVE REPORT DATE OF : 41 PHYSICIAN: CARLOS ENRIQUE MORGAN MD REPORT #: [id number] REPORT IS CONFIDENTIAL AND NOT TO BE RELEASED WITHOUT AUTHORIZATION [facility] [address], [place] [address] Signed colon. The sigmoid was slightly difficult to traverse. With all due care and caution, the numerous diverticula that impeded progress were negotiated and the scope passed beyond this to the cecum without problem. The ileocecal valve and appendiceal orifice were normal. The scope was withdrawn from that point. Careful inspection upon withdrawal of scope showed no sign of polyps, colitis, or cancer, but only diverticula of the sigmoid and left colon. Retroflexed view of the rectum was normal. The scope was straightened, withdrawn, and removed, then the patient was taken to recovery room in good condition. CONCLUDING DIAGNOSIS: Diverticulosis sigmoid. PLAN: Recommend high-fiber diet. She will return to the ongoing care of YANCY Haddad. Consideration for repeat colonoscopy in 10 years will be made based on her clinical status at that time. A colonoscopy should certainly be undertaken again sooner if there are symptoms of concern. MD SOLO Swan/ODETTE /[id number] cc: YANCY Haddad Electronically Signed By: CARLOS ENRIQUE MORGAN MD 07/11/17 0855 PATIENT NAME: DAMIR KELLEY YONI OPERATIVE REPORT DATE OF : 41 PHYSICIAN: CARLOS ENRIQUE MORGAN MD REPORT #: [id number] REPORT IS CONFIDENTIAL AND NOT TO BE RELEASED WITHOUT AUTHORIZATION
== END 2017-07-10 14:48 | disposition home or self-care (01) ==
LOC: OPS 12:08 → DS 12:08 → OPS 13:00
PROVIDERS: Surgery
PROC: 0DJD8ZZ Inspection of Lower Intestinal Tract, Via Natural or Artificial Opening Endoscopic (ICD-10-PCS; principal; 2017-07-10 13:00)
DX: Z12.11 Encounter for screening for malignant neoplasm of colon (principal); K57.30 Diverticulosis of large intestine without perforation or abscess without bleeding; M19.90 Unspecified osteoarthritis, unspecified site; F32.9 Major depressive disorder, single episode, unspecified; E11.9 Type 2 diabetes mellitus without complications; K21.9 Gastro-esophageal reflux disease without esophagitis; I10 Essential (primary) hypertension; Z88.5 Allergy status to narcotic agent; Z88.0 Allergy status to penicillin; Z87.891 Personal history of nicotine dependence; Z98.41 Cataract extraction status, right eye; Z98.42 Cataract extraction status, left eye; Z98.890 Other specified postprocedural states
CPT/HCPCS: 99153; G0500; J2250; J3010; J7120